=== PATIENT | female | born 1945 | race Caucasian/White ===

== ENCOUNTER 2020-11-21 14:26 | Outpatient (CLI) | payer OTHER | END 2020-11-21 14:27 | disposition critical access hospital (66) | LOC: EMS 14:26 | DX: Z04.1 Encounter for examination and observation following transport accident (principal); M79.605 Pain in left leg; M79.604 Pain in right leg | CPT/HCPCS: A0425; A0429 ==

== ENCOUNTER 2020-11-21 14:54 | Emergency (ER) | payer OTHER ==
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
[2020-11-21 17:29] VITALS: BP 138/59
== END 2020-11-21 17:30 | disposition home or self-care (01) ==
LOC: ED 14:54
DX: S82.831A Other fracture of upper and lower end of right fibula, initial encounter for closed fracture (principal); V49.50XA Passenger injured in collision with unspecified motor vehicles in traffic accident, initial encounter
CPT/HCPCS: 99283